=== PATIENT | female | born 1960 | race Two or more races ===

== ENCOUNTER 2019-02-24 15:07 | Emergency (ER) | payer OTHER ==
[~2019-02-24] VITALS: Ht 160 cm; Wt 57.2 kg
[2019-02-24] MEDS ORDERED: LISINOPRIL5 MG (15:24)
== END 2019-02-24 22:18 | disposition home or self-care (01) ==
LOC: ER 15:07
DX: T18.8XXA Foreign body in other parts of alimentary tract, initial encounter (principal); W45.8XXA Other foreign body or object entering through skin, initial encounter; Y93.89 Activity, other specified; Y92.89 Other specified places as the place of occurrence of the external cause; Y99.8 Other external cause status

== ENCOUNTER 2021-03-14 08:05 | Emergency (ER) | payer OTHER ==
[~2021-03-14] VITALS: Ht 160 cm; Wt 63.0 kg
[~2021-03-14 08:05] MED LIST: LISINOPRIL5 MG
[2021-03-14] MEDS ORDERED: ORPHENADRINE C100 MG PO (12:01)
[2021-03-14] MEDS ORDERED: KETO10TA2 PO (12:01)
== END 2021-03-14 14:34 ==
LOC: ER 08:05
DX: S33.9XXA Sprain of unspecified parts of lumbar spine and pelvis, initial encounter (principal); X50.0XXA Overexertion from strenuous movement or load, initial encounter; Y93.89 Activity, other specified; Y92.89 Other specified places as the place of occurrence of the external cause; Y99.8 Other external cause status

== ENCOUNTER 2024-02-20 07:30 | Emergency (ER) | payer OTHER ==
[~2024-02-20] VITALS: Ht 160 cm; Wt 62.6 kg
[~2024-02-20 07:30] MED LIST changes: +KETO10TA2 PO; +ORPHENADRINE C100 MG PO
[2024-02-20 07:43] VITALS: BP 121/83; O2SAT 99
[2024-02-20] MEDS ORDERED: HYDROCORTISONE ACETATE 25 MG/SUPP.RECT SUPP.RECT RECTAL STA (09:06)
== END 2024-02-20 09:25 | disposition home or self-care (01) ==
LOC: ER 07:31
DX: K64.9 Unspecified hemorrhoids (principal); I10 Essential (primary) hypertension